=== PATIENT | female | born 1995 | race American Indian/Alaskan Native ===

== ENCOUNTER 2017-11-30 01:24 | Emergency (ER) | payer OTHER ==
[~2017-11-30] VITALS: Ht 165.1 cm; Wt 73.9 kg
[~2017-11-30 01:24] MED LIST: AMOX-362 PO; IBUP200C71 PO; LOR5/325 PO; MINO100C27 PO; NITR-105 PO; OMEP-125 PO; ONDA4TAB9 PO; OXYC-865 PO; PROM-110 PO; RANI-324 PO; SULF-198 PO; [UNRECOGNIZED DRUG - CODE] PO
[2017-11-30 01:28] VITALS: BP 113/62
--- NOTE | 2017-11-30 01:28 | ER Report ---
History and Physical Time Seen By MD: 01:27 HPI/ROS CHIEF COMPLAINT: Eyelid swelling and redness HISTORY OF PRESENT ILLNESS: 22-year-old female presents ambulatory to the ER concerned about her eyelids. She states she tried a new facial cleansing product. In her lower eyelids are no red and swollen. She also notes that she has a spot on her left lower eyelid at the margin. She notes a red lump. It's been irritating her eye. She notes no mattering or discharge. She's had no recent URI or fever. REVIEW OF SYSTEMS: Respiratory: No cough, no dyspnea. Cardiovascular: No chest pain, no palpitations. Gastrointestinal: No vomiting, no abdominal pain. Musculoskeletal: No back pain. Allergies: Coded Allergies: No Known Drug Allergies (Unverified , 11/30/17) Home Meds Discontinued Reported Medications Ibuprofen (IBUPROFEN) 200 Mg Capsule, 1 CAP PO PRN, CAPSULE 08/31/17 Reviewed Nurses Notes: Yes Old Medical Records Reviewed: Yes Hx Smoking: No Smoking Status: Never Smoker Hx Substance Use Disorder: No Hx Alcohol Use: Yes (FEW TIMES) Constitutional Vital Sign - Last 24 Hours 11/30/17 01:28 Temp 98.2 Pulse 78 Resp 18 B/P (MAP) 113/62 Pulse Ox 96 O2 Delivery Room Air Physical Exam General Appearance: The patient is alert, has no immediate need for airway protection and no current signs of toxicity. Vital signs stable, afebrile Eyes: Pupils equal and round no injection. No injection noted. The bilateral lower lid show mild erythema with edema. In the midportion of the left lower lid. There is apparent stye. Respiratory: Chest is non tender, lungs are clear to auscultation. Cardiac: regular rate and rhythm Gastrointestinal: Abdomen is soft and non tender, no masses, bowel sounds normal. Musculoskeletal: Neck: Neck is supple and non tender. No lymphadenopathy Extremities have full range of motion and are non tender. Skin: No rashes or lesions. DIFFERENTIAL DIAGNOSIS: After history and physical exam differential diagnosis was considered for allergic reaction, cellulitis, hordeolum, contact dermatitis , viral syndrome Medical Decision Making ED Course/Re-evaluation ED Course Patient was admitted to an examination room. H&P was done. The differential diagnoses was considered. On clinical examination, patient appears to have a allergic reaction/contact dermatitis to her facial wash material. She also has a stye in her left eye. Patient was advised to conservative treatment plan with hydrocortisone 1% cream. Patient was advised Benadryl for itching and ibuprofen for pain. She was advised to apply warm compresses to her left eyelid. Decision to Disposition Date: Nov 30, 2017 Decision to Disposition Time: 01:43 Depart Departure Latest Vital Signs Vital Signs Date Time Temp Pulse Resp B/P (MAP) Pulse Ox O2 Delivery O2 Flow Rate FiO2 11/30/17 01:28 98.2 78 18 113/62 96 Room Air Impression: Primary Impression: Blepharitis Additional Impression: Hordeolum Condition: Improved Disposition: HOME OR SELF-CARE Referrals: MANOJ SANCHEZ MD New Scripts No Active Prescriptions or Reported Meds Patient Instructions: Blepharitis (ED), Stye (ED) Additional Instructions: Use hydrocortisone 1% cream on her eyelids 2-3 times per day for the next 3-5 days Use Benadryl for any itching or burning Take ibuprofen for pain relief as needed Apply warm compresses to your left lower eyelid to heal the blocked oil gland Follow-up with primary care if unimproved in 3-5 days Problem Qualifiers Primary Impression: Blepharitis Blepharitis type: unspecified type Laterality: bilateral Eyelid: lower Qualified Codes: H01.002 - Unspecified blepharitis right lower eyelid; H01.005 - Unspecified blepharitis left lower eyelid Additional Impression: Hordeolum Hordeolum type: unspecified type Laterality: left Eyelid: lower Qualified Codes: H00.015 - Hordeolum externum left lower eyelid MEGHAN HENDRICKS DO Nov 30, 2017 01:28
== END 2017-11-30 01:55 | disposition home or self-care (01) ==
LOC: ER 01:46
DX: H01.002 Unspecified blepharitis right lower eyelid (principal); H00.015 Hordeolum externum left lower eyelid
CPT/HCPCS: 99281

== ENCOUNTER 2017-12-10 19:16 | Emergency (ER) | payer OTHER ==
[~2017-12-10] VITALS: Ht 165.1 cm; Wt 73.9 kg
[2017-12-10] MEDS ORDERED: NS(*) 0.9% 1000 ML BAG 1,000 ML IV ONE (19:42)
--- NOTE | 2017-12-10 19:50 | ER Report ---
History and Physical Time Seen By MD: 19:27 Hx. of Stated Complaint: patient states she is dehydrated; having bad menstrual cramps and has a head ache. pt also states that she can not sleep. HPI/ROS CHIEF COMPLAINT: Headache, abdominal pain, vomiting. HISTORY OF PRESENT ILLNESS: 22-year-old female patient presents to emergency room with complaint of headache, abdominal pain and vomiting. Patient states that she has had a headache, abdominal pain and vomiting for the last 2 days. She states that today she vomited 5 times, she states that she vomited more yesterday. She states she is currently on her menses and that that started yesterday as well. She states the headache is on the left side of the head, she states that this is a worsening headache she's ever had. She states she's had headaches in the past but nothing like this. She denies having any fevers, chills, diarrhea. She states she's not been able to eat. She states she's not been able to sleep she is extremely stressed about school. She states she is very tired and just not feeling well. REVIEW OF SYSTEMS: Respiratory: No cough, no dyspnea. Cardiovascular: No chest pain, no palpitations. Gastrointestinal: As noted above Musculoskeletal: No back pain. Allergies: Coded Allergies: No Known Drug Allergies (Unverified , 12/10/17) Home Meds Active Scripts Ondansetron (ZOFRAN ODT) 4 Mg Tab.rapdis, 4 MG PO Q6H Y for NAUSEA/VOMITING, # 20 TAB.ANGEL Prov:FEMI BUTCHER PIN [employer]KER 12/10/17 Past Medical/Surgical History Patient has a past medical history of asthma, tuberculosis, reflux, alcohol use , depression. Patient has a surgical history of tonsillectomy. Reviewed Nurses Notes: Yes Hx Smoking: No Smoking Status: Never Smoker Hx Substance Use Disorder: No Hx Alcohol Use: Yes (FEW TIMES) Constitutional Vital Sign - Last 24 Hours 12/10/17 19:23 Temp 98.9 Pulse 70 Resp 19 B/P (MAP) 121/55 Pulse Ox 98 O2 Delivery Room Air Physical Exam General Appearance: The patient is alert, has no immediate need for airway protection and no current signs of toxicity. Eyes: Pupils equal and round no injection. Extraocular movements intact. Respiratory: Chest is non tender, lungs are clear to auscultation. Cardiac: regular rate and rhythm Gastrointestinal: Abdomen is soft and tender in the left lower quadrant, no masses, bowel sounds normal. Musculoskeletal: Neck: Neck is supple and non tender. Extremities have full range of motion and are non tender. Skin: No rashes or lesions. Neuro: Patient is alert and oriented 4, cranial nerves II through XII grossly intact. DIFFERENTIAL DIAGNOSIS: After history and physical exam differential diagnosis was considered for viral syndrome, migraine, tension type headache, anxiety, depression, menstrual cramping. Medical Decision Making Data Points Result Diagram: 12/10/17195112/10/171951 Laboratory Hematology Test 12/10/17 19:52 Red Blood Count 5.45 M/uL (4.17-5.56) Mean Corpuscular Volume 85.0 fL (80.0-96.0) Mean Corpuscular Hemoglobin 28.5 pg (26.0-33.0) Mean Corpuscular Hemoglobin Concent 33.5 g/dL (32.0-36.0) Red Cell Distribution Width 14.0 % (11.5-14.5) Mean Platelet Volume 7.6 fL (7.2-11.1) Neutrophils (%) (Auto) 58.5 % (39.4-72.5) Lymphocytes (%) (Auto) 33.1 % (17.6-49.6) Monocytes (%) (Auto) 6.6 % (4.1-12.4) Eosinophils (%) (Auto) 1.0 % (0.4-6.7) Basophils (%) (Auto) 0.8 % (0.3-1.4) Nucleated RBC Relative Count (auto) 0.1 /100WBC Neutrophils # (Auto) 4.5 K/uL (2.0-7.4) Lymphocytes # (Auto) 2.6 K/uL (1.3-3.6) Monocytes # (Auto) 0.5 K/uL (0.3-1.0) Eosinophils # (Auto) 0.1 K/uL (0.0-0.5) Basophils # (Auto) 0.1 K/uL (0.0-0.1) Nucleated RBC Absolute Count (auto) 0.00 K/uL Sodium Level 140 mmol/L (137-145) Potassium Level 4.0 mmol/L (3.5-5.0) Chloride Level 104 mmol/L (98-107) Carbon Dioxide Level 23 mmol/L (22-31) Blood Urea Nitrogen 10 mg/dl (7-18) Creatinine 0.70 mg/dl (0.52-1.04) Glomerular Filtration Rate Calc > 60.0 Random Glucose 82 mg/dl (75-110) Calcium Level 9.4 mg/dl (8.4-10.2) Total Bilirubin 0.6 mg/dl (0.2-1.3) Aspartate Amino Transf (AST/SGOT) 22 U/L (0-35) Alanine Aminotransferase (ALT/SGPT) 23 U/L (0-56) Alkaline Phosphatase 51 U/L (0-126) C-Reactive Protein < 0.5 mg/dl (<1.0) Total Protein 7.9 gm/dl (6.3-8.2) Albumin 4.5 g/dl (3.5-5.0) Amylase Level 73 U/L (0-110) Lipase 34 U/L (23-300) Human Chorionic Gonadotropin, Qual Negative (NEGATIVE) Influenza Virus Type A (PCR) Negative (NEGATIVE) Influenza Virus Type B (PCR) Negative (NEGATIVE) Chemistry Test 12/10/17 19:52 White Blood Count 7.8 k/uL (4.5-11.0) Red Blood Count 5.45 M/uL (4.17-5.56) Hemoglobin 15.5 g/dL (12.0-16.0) Hematocrit 46.4 % (34.0-47.0) Mean Corpuscular Volume 85.0 fL (80.0-96.0) Mean Corpuscular Hemoglobin 28.5 pg (26.0-33.0) Mean Corpuscular Hemoglobin Concent 33.5 g/dL (32.0-36.0) Red Cell Distribution Width 14.0 % (11.5-14.5) Platelet Count 308 K/uL (150-450) Mean Platelet Volume 7.6 fL (7.2-11.1) Neutrophils (%) (Auto) 58.5 % (39.4-72.5) Lymphocytes (%) (Auto) 33.1 % (17.6-49.6) Monocytes (%) (Auto) 6.6 % (4.1-12.4) Eosinophils (%) (Auto) 1.0 % (0.4-6.7) Basophils (%) (Auto) 0.8 % (0.3-1.4) Nucleated RBC Relative Count (auto) 0.1 /100WBC Neutrophils # (Auto) 4.5 K/uL (2.0-7.4) Lymphocytes # (Auto) 2.6 K/uL (1.3-3.6) Monocytes # (Auto) 0.5 K/uL (0.3-1.0) Eosinophils # (Auto) 0.1 K/uL (0.0-0.5) Basophils # (Auto) 0.1 K/uL (0.0-0.1) Nucleated RBC Absolute Count (auto) 0.00 K/uL Glomerular Filtration Rate Calc > 60.0 Calcium Level 9.4 mg/dl (8.4-10.2) Total Bilirubin 0.6 mg/dl (0.2-1.3) Aspartate Amino Transf (AST/SGOT) 22 U/L (0-35) Alanine Aminotransferase (ALT/SGPT) 23 U/L (0-56) Alkaline Phosphatase 51 U/L (0-126) C-Reactive Protein < 0.5 mg/dl (<1.0) Total Protein 7.9 gm/dl (6.3-8.2) Albumin 4.5 g/dl (3.5-5.0) Amylase Level 73 U/L (0-110) Lipase 34 U/L (23-300) Human Chorionic Gonadotropin, Qual Negative (NEGATIVE) Influenza Virus Type A (PCR) Negative (NEGATIVE) Influenza Virus Type B (PCR) Negative (NEGATIVE) EKG/Imaging Imaging Abdomen: Indication: Abdominal pain. Technique: Supine and erect views of the abdomen were obtained. Comparison: None. Findings: The intestinal gas pattern is unremarkable. There is no evidence of obstruction, dilatation, or free air. No suspicious calcifications are identified. The skeletal and soft tissue structures appear unremarkable. IMPRESSION: No evidence of obstruction or other acute process. Report Dictated By: Jun Ferrera MD at 12/10/2017 9:00 PM Report E-Signed By: Jun Ferrera MD at 12/10/2017 9:02 PM CHEST: Indication: Cough. Technique: Frontal and lateral views were obtained. Comparison: 07/15/2015 Skeletal and soft tissue structures: Intact and unremarkable. Heart and mediastinum: Within normal limits. Lung martell: Well-expanded and clear. No focal or diffuse opacities. Pleural spaces: Unremarkable. Impression: No acute process or significant change. Report Dictated By: Jun Ferrera MD at 12/10/2017 8:58 PM Report E-Signed By: Jun Ferrera MD at 12/10/2017 9:[address]: Indication: Persistent headache. Technique: Contiguous axial sections were obtained from the base to the vertex without contrast enhancement. One of the following dose optimization techniques was utilized in the performance of this exam: Automated exposure control; adjustment of the mA and/ or kV according to the patient's size; or use of an iterative reconstruction technique. Specific details can be referenced in the facility's radiology CT exam operational policy. Comparison: None. Findings: There is no evidence of intra-axial or extra-axial hemorrhage. No focal areas of decreased or increased attenuation are identified. There is no evidence of mass, edema, or shift of the midline structures. The size, shape, and configuration of the ventricular system are normal. The skeletal structures are intact and unremarkable. The visualized paranasal sinuses and mastoid air cells are clear. Impression: Unremarkable unenhanced head CT. Report Dictated By: Jun Ferrera MD at 12/10/2017 9:02 PM Report E-Signed By: Jun Ferrera MD at 12/10/2017 9:05 PM ED Course/Re-evaluation ED Course Patient was admitted to an exam room, history and physical were obtained. Differential diagnoses were considered. On examination patient had mild tenderness in the left lower quadrant, remainder the exam is benign. A CBC, CMP were done. Patient received a liter of normal saline. The labs were unremarkable. A influenza screen was done which was also negative. CT scan of the head was done due to the headache, patient did state that it was a worse headache of her life, as well as a chest x-ray and abdominal x-ray. The results were unremarkable for all the imaging. I discussed findings with patient. We will go ahead and treat her headache with Toradol, Benadryl, Norflex, and Phenergan. On reevaluation patient states she had complete resolution of her headache. She also states that her abdomen is not hurting. We will go ahead and discharge her at this time. She is to follow-up with her primary care next week. Patient was talking about some anxiety problems she is having, not sleeping well at night. I will go ahead and refer her to her primary care provider to talk about antidepressants. Decision to Disposition Date: Dec 10, 2017 Decision to Disposition Time: 21:48 Depart Departure Latest Vital Signs Vital Signs Date Time Temp Pulse Resp B/P (MAP) Pulse Ox O2 Delivery O2 Flow Rate FiO2 12/10/17 19:23 98.9 70 19 121/55 98 Room Air Impression: Primary Impression: Headache Additional Impressions: Vomiting Gastroenteritis Condition: Improved Disposition: HOME OR SELF-CARE New Scripts Ondansetron (ZOFRAN ODT) 4 Mg Tab.rapdis 4 MG PO Q6H Y for NAUSEA/VOMITING, #20 TAB.ANGEL Prov: FEMI BUTCHER 12/10/17 Patient Instructions: Acute Headache (ED) Additional Instructions: Increase fluid intake. Clear liquid diet for the next 24-48 hours. After that you may advance diet as tolerated starting with complex carbohydrates ; rice, bread or pasta. Follow up with your primary care provider in the next week, talk about your anxiety and your insomnia. Return to the ER if condition worsens. Take Tylenol or Ibuprofen as needed for pain. Problem Qualifiers Primary Impression: Headache Headache type: tension-type Headache chronicity pattern: acute headache Intractability: not intractable Qualified Codes: G44.209 - Tension-type headache, unspecified, not intractable Additional Impressions: Vomiting Vomiting type: unspecified Vomiting Intractability: non-intractable Nausea presence: without nausea Qualified Codes: R11.11 - Vomiting without nausea FEMI BUTCHER Dec 10, 2017 19:50
[2017-12-10 20:04] LABS: PLATELET COUNT, AUTOMATED 308 K/uL (150-450)
--- NOTE | 2017-12-10 21:04 | RADIOLOGY IMAGING REPORT ---
FACILITY: [facility] PATIENT NAME: Genevieve Blanco : 1995 MR: [id number] V: [id number] EXAM DATE: ORDERING PHYSICIAN: FEMI BUTCHER TECHNOLOGIST: Location: [facility] - [place] Patient: Genevieve Blanco : 1995 Visit/Account:[id number] Date of Sevice: 12/10/2017 CHEST: Indication: Cough. Technique: Frontal and lateral views were obtained. Comparison: 07/15/2015 Skeletal and soft tissue structures: Intact and unremarkable. Heart and mediastinum: Within normal limits. Lung martell: Well-expanded and clear. No focal or diffuse opacities. Pleural spaces: Unremarkable. Impression: No acute process or significant change. Report Dictated By: Jun Ferrera MD at 12/10/2017 8:58 PM Report E-Signed By: Jun Ferrera MD at 12/10/2017 9:00 PM WSN:[id number]
--- NOTE | 2017-12-10 21:06 | RADIOLOGY IMAGING REPORT ---
FACILITY: [facility] - [place] PATIENT NAME: Genevieve Blanco : 1995 MR: [id number] V: [id number] EXAM DATE: ORDERING PHYSICIAN: FEMI BUTCHER TECHNOLOGIST: Location: [facility] Patient: Genevieve Blanco : 1995 Visit/Account:[id number] Date of Sevice: 12/10/2017 Abdomen: Indication: Abdominal pain. Technique: Supine and erect views of the abdomen were obtained. Comparison: None. Findings: The intestinal gas pattern is unremarkable. There is no evidence of obstruction, dilatation , or free air. No suspicious calcifications are identified. The skeletal and soft tissue structures a ppear unremarkable. IMPRESSION: No evidence of obstruction or other acute process. Report Dictated By: Jun Ferrera MD at 12/10/2017 9:00 PM Report E-Signed By: Jun Ferrera MD at 12/10/2017 9:02 PM WSN:[id number]
--- NOTE | 2017-12-10 21:09 | RADIOLOGY IMAGING REPORT ---
FACILITY: [facility] PATIENT NAME: Genevieve Blanco : 1995 MR: [id number] V: [id number] EXAM DATE: ORDERING PHYSICIAN: FEMI BUTCHER TECHNOLOGIST: Location: [facility] - [place] Patient: Genevieve Blanco : 1995 Visit/Account:[id number] Date of Sevice: 12/10/[address]: Indication: Persistent headache. Technique: Contiguous axial sections were obtained from the base to the vertex without contrast enhan cement. One of the following dose optimization techniques was utilized in the performance of this exam: Autom ated exposure control; adjustment of the mA and/or kV according to the patient's size; or use of an i terative reconstruction technique. Specific details can be referenced in the facility's radiology CT exam operational policy. Comparison: None. Findings: There is no evidence of intra-axial or extra-axial hemorrhage. No focal areas of decreased or increased attenuation are identified. There is no evidence of mass, edema, or shift of the midline structures. The size, shape, and configuration of the ventricular system are normal. The skeletal st ructures are intact and unremarkable. The visualized paranasal sinuses and mastoid air cells are huy r. Impression: Unremarkable unenhanced head CT. Report Dictated By: Jun Ferrera MD at 12/10/2017 9:02 PM Report E-Signed By: Jun Ferrera MD at 12/10/2017 9:05 PM WSN:[id number]
[2017-12-10] MEDS ORDERED: ORPHENADRINE 60MG/2ML INJ IVP ONE (21:10)
[2017-12-10] MEDS ORDERED: PROMETHAZINE 25 MG/ML 1 ML AMP IVP ONE (21:10)
[2017-12-10] MEDS ORDERED: diphenhydrAMINE 50 MG/ML VIAL IVP ONE (21:10)
[2017-12-10] MEDS ORDERED: KETOROLAC 30 MG/ML VIAL IVP ONE (21:10)
[2017-12-10] MEDS ORDERED: ONDA4TAB PO (21:48)
[2017-12-10 22:00] VITALS: BP 114/73
== END 2017-12-10 22:04 | disposition home or self-care (01) ==
LOC: ER 19:19
DX: K52.9 Noninfective gastroenteritis and colitis, unspecified (principal); G44.209 Tension-type headache, unspecified, not intractable; R11.11 Vomiting without nausea
CPT/HCPCS: 70450; 71046; 74019; 82150; 83690; 84703; 85025; 86140; 87502; 96361; 96374; 96375; 99284; J1200; J1885; J2360; J2550; J7030; 82040; 82247; 82310; 82374; 82435; 82565; 82947; 84075; 84132; 84155; 84295; 84450; 84460; 84520

== ENCOUNTER 2018-03-02 09:42 | Emergency (ER) | payer OTHER ==
[~2018-03-02 09:42] MED LIST changes: +ONDA4TAB PO; -RANI-324 PO; +RANI-366 PO
--- NOTE | 2018-03-02 09:50 | ER Report ---
History and Physical Time Seen By MD: 09:49 HPI/ROS CHIEF COMPLAINT: Headache, nausea and vomiting HISTORY OF PRESENT ILLNESS: Patient is a 22-year-old female who presents to the emergency department with multiple complaints. She states that she is having headache with associated nausea and vomiting similar to her prior headaches she was seen on 12/10/2017. Patient denies any fevers or chills. She denies any neck stiffness. She states that she is also having some abnormal vaginal discharge. And is unsure of her last menstrual period and could possibly be . Patient states she is sexually active. She also admits to having stress with regard to school. REVIEW OF SYSTEMS: Respiratory: No cough, no dyspnea. Cardiovascular: No chest pain, no palpitations. Gastrointestinal: Nausea, vomiting no abdominal pain no diarrhea Musculoskeletal: No back pain. Neuro: Headache ON AIR PERSONALITY: Vaginal discharge Allergies: Coded Allergies: No Known Drug Allergies (Unverified , 03/02/18) Home Meds Active Scripts Naproxen (NAPROXEN) 250 Mg Tablet, 500 MG PO TID for headache, #15 TAB 0 Refills Prov:ROCKY ELLIOTT MD 03/02/18 Doxycycline Hyclate (DOXYCYCLINE HYCLATE) 100 Mg Tablet, 100 MG PO BID for 7 Days, #14 TAB 0 Refills Prov:ROCKY ELLIOTT MD 03/02/18 Discontinued Scripts Ondansetron (ZOFRAN ODT) 4 Mg Tab.rapdis, 4 MG PO Q6H Y for NAUSEA/VOMITING, # 20 TAB.ANGEL Prov:FEMI BUTCHER [employer] 12/10/17 Past Medical/Surgical History Noncontributory Hx Smoking: No Smoking Status: Never Smoker Hx Substance Use Disorder: No Hx Alcohol Use: Yes (FEW TIMES) Constitutional Vital Sign - Last 24 Hours 03/02/18 09:52 Temp 98.2 Pulse 76 Resp 18 B/P (MAP) 108/56 Pulse Ox 97 O2 Delivery Room Air Physical Exam General/Constitutional: Patient is awake, alert, nontoxic and in no acute respiratory distress. Head: Normocephalic and atraumatic. Eyes: Conjunctival clear, Pupils are equal and reactive to light. Extraocular muscles are intact and symmetrical. Sclera are clear and anicteric. Ears:External canals are clear. Tympanic membranes are clear with normal landmarks and light reflex. Oropharyngeal: Mucous membranes are moist. There is no pharyngeal erythema or exudate. There are no palatal petechiae. Uvula is midline and symmetrical. Neck: Supple, no adenopathy. Cardiovascular: Heart is regular rate and rhythm without audible murmurs, rubs or gallops. Pulmonary: Lungs are clear to auscultation bilaterally. There are no wheezes, rales, or rhonchi. Chest rise is symmetrical Abdomen: Soft, nontender, no guarding or peritoneal signs. : Patient refused vaginal and speculum exam at this time. She states she does not feel comfortable with the male performing the exam and she has never had a pelvic exam performed prior. Extremities: No gross deformities, No peripheral cyanosis. Able to move all 4 extremities. Neuro: Alert and oriented X3, Skin: No rashes, skin is warm dry and well perfused. Medical Decision Making Data Points Result Diagram: 03/02/18 1015 03/02/18 1015 Laboratory Hematology Test 03/02/18 10:15 03/02/18 11:41 Red Blood Count 5.30 M/uL (4.17-5.56) Mean Corpuscular Volume 84.2 fL (80.0-96.0) Mean Corpuscular Hemoglobin 29.1 pg (26.0-33.0) Mean Corpuscular Hemoglobin Concent 34.5 g/dL (32.0-36.0) Red Cell Distribution Width 13.7 % (11.5-14.5) Mean Platelet Volume 7.6 fL (7.2-11.1) Neutrophils (%) (Auto) 54.4 % (39.4-72.5) Lymphocytes (%) (Auto) 35.9 % (17.6-49.6) Monocytes (%) (Auto) 6.8 % (4.1-12.4) Eosinophils (%) (Auto) 2.3 % (0.4-6.7) Basophils (%) (Auto) 0.6 % (0.3-1.4) Nucleated RBC Relative Count (auto) 0.1 /100WBC Neutrophils # (Auto) 4.2 K/uL (2.0-7.4) Lymphocytes # (Auto) 2.8 K/uL (1.3-3.6) Monocytes # (Auto) 0.5 K/uL (0.3-1.0) Eosinophils # (Auto) 0.2 K/uL (0.0-0.5) Basophils # (Auto) 0.0 K/uL (0.0-0.1) Nucleated RBC Absolute Count (auto) 0.01 K/uL Sodium Level 140 mmol/L (137-145) Potassium Level 3.8 mmol/L (3.5-5.0) Chloride Level 104 mmol/L (98-107) Carbon Dioxide Level 23 mmol/L (22-31) Blood Urea Nitrogen 14 mg/dl (7-18) Creatinine 0.70 mg/dl (0.52-1.04) Glomerular Filtration Rate Calc > 60.0 Random Glucose 87 mg/dl (75-110) Calcium Level 9.5 mg/dl (8.4-10.2) Urine Color Yellow Urine Clarity Slightly-cloudy Urine pH 7.0 pH (4.8-9.5) Urine Specific [place] 1.010 Urine Protein Negative mg/dL (NEGATIVE) Urine Glucose (UA) Negative mg/dL (NEGATIVE) Urine Ketones Negative mg/dL (NEGATIVE) Urine Blood Large (NEGATIVE) Urine Nitrite Positive (NEGATIVE) Urine Bilirubin Negative (NEGATIVE) Urine Urobilinogen Negative mg/dL (0.2-1.9) Urine Leukocyte Esterase Small (NEGATIVE) Urine RBC 4 /HPF (0-2/HPF) Urine WBC 15 /HPF (0-5/HPF) Urine Squamous Epithelial Cells Many /LPF (</=FEW) Urine Bacteria Few /HPF (NONE-FEW) Urine Mucus Few /HPF (NONE-FEW) Urine HCG, Qualitative Negative (NEGATIVE) Chemistry Test 03/02/18 10:15 03/02/18 11:41 White Blood Count 7.8 k/uL (4.5-11.0) Red Blood Count 5.30 M/uL (4.17-5.56) Hemoglobin 15.4 g/dL (12.0-16.0) Hematocrit 44.6 % (34.0-47.0) Mean Corpuscular Volume 84.2 fL (80.0-96.0) Mean Corpuscular Hemoglobin 29.1 pg (26.0-33.0) Mean Corpuscular Hemoglobin Concent 34.5 g/dL (32.0-36.0) Red Cell Distribution Width 13.7 % (11.5-14.5) Platelet Count 308 K/uL (150-450) Mean Platelet Volume 7.6 fL (7.2-11.1) Neutrophils (%) (Auto) 54.4 % (39.4-72.5) Lymphocytes (%) (Auto) 35.9 % (17.6-49.6) Monocytes (%) (Auto) 6.8 % (4.1-12.4) Eosinophils (%) (Auto) 2.3 % (0.4-6.7) Basophils (%) (Auto) 0.6 % (0.3-1.4) Nucleated RBC Relative Count (auto) 0.1 /100WBC Neutrophils # (Auto) 4.2 K/uL (2.0-7.4) Lymphocytes # (Auto) 2.8 K/uL (1.3-3.6) Monocytes # (Auto) 0.5 K/uL (0.3-1.0) Eosinophils # (Auto) 0.2 K/uL (0.0-0.5) Basophils # (Auto) 0.0 K/uL (0.0-0.1) Nucleated RBC Absolute Count (auto) 0.01 K/uL Glomerular Filtration Rate Calc > 60.0 Calcium Level 9.5 mg/dl (8.4-10.2) Urine Color Yellow Urine Clarity Slightly-cloudy Urine pH 7.0 pH (4.8-9.5) Urine Specific [place] 1.010 Urine Protein Negative mg/dL (NEGATIVE) Urine Glucose (UA) Negative mg/dL (NEGATIVE) Urine Ketones Negative mg/dL (NEGATIVE) Urine Blood Large (NEGATIVE) Urine Nitrite Positive (NEGATIVE) Urine Bilirubin Negative (NEGATIVE) Urine Urobilinogen Negative mg/dL (0.2-1.9) Urine Leukocyte Esterase Small (NEGATIVE) Urine RBC 4 /HPF (0-2/HPF) Urine WBC 15 /HPF (0-5/HPF) Urine Squamous Epithelial Cells Many /LPF (</=FEW) Urine Bacteria Few /HPF (NONE-FEW) Urine Mucus Few /HPF (NONE-FEW) Urine HCG, Qualitative Negative (NEGATIVE) Urinalysis Test 03/02/18 11:41 Urine Color Yellow Urine Clarity Slightly-cloudy Urine pH 7.0 pH (4.8-9.5) Urine Specific [place] 1.010 Urine Protein Negative mg/dL (NEGATIVE) Urine Glucose (UA) Negative mg/dL (NEGATIVE) Urine Ketones Negative mg/dL (NEGATIVE) Urine Blood Large (NEGATIVE) Urine Nitrite Positive (NEGATIVE) Urine Bilirubin Negative (NEGATIVE) Urine Urobilinogen Negative mg/dL (0.2-1.9) Urine Leukocyte Esterase Small (NEGATIVE) Urine RBC 4 /HPF (0-2/HPF) Urine WBC 15 /HPF (0-5/HPF) Urine Squamous Epithelial Cells Many /LPF (</=FEW) Urine Bacteria Few /HPF (NONE-FEW) Urine Mucus Few /HPF (NONE-FEW) Urine HCG, Qualitative Negative (NEGATIVE) ED Course/Re-evaluation Clinical Indication for ER IV: Hydration, IV Access ED Course 03/02/2018 10:28:06 am had discussion with the patient that with regard to her vaginal discharge or pelvic exam would be indicated. Patient states that she has never had a pelvic exam performed and does not wish to have one performed at this time. I stated that we would be able to send off urine for some STD testing but she really should have a formal pelvic exam if she is sexually active. I discussed that I will provide her with Dr. Candy Fischer's contact information so that she can set up a formal ON AIR PERSONALITY exam Re-evaluation 03/02/2018 12:01:08 pm headache has resolved patient is feeling improved. Urinalysis positive for nitrates. We'll give IM Rocephin followed by 70 course of doxycycline. This is a presumptive diagnosis for STD based on the patient's symptoms. ON AIR PERSONALITY exam deferred by the patient. She will schedule a follow-up appointment with Dr. Candy Fischer. STD results are pending. Treatment for STD was on presumptive and clinical diagnosis Decision to Disposition Date: Mar 02, 2018 Decision to Disposition Time: 12:01 Depart Departure Latest Vital Signs Vital Signs Date Time Temp Pulse Resp B/P (MAP) Pulse Ox O2 Delivery O2 Flow Rate FiO2 03/02/18 09:52 98.2 76 18 108/56 97 Room Air Impression: Primary Impression: Headache Additional Impression: Urinary tract infection Condition: Improved Disposition: HOME OR SELF-CARE Referrals: CANDY FISCHER MD schedule an appointment for ON AIR PERSONALITY exam New Scripts Naproxen (NAPROXEN) 250 Mg Tablet 500 MG PO TID for headache, #15 TAB 0 Refills Prov: ROCKY ELLIOTT MD 03/02/18 Doxycycline Hyclate (DOXYCYCLINE HYCLATE) 100 Mg Tablet 100 MG PO BID for 7 Days, #14 TAB 0 Refills Prov: ROCKY ELLIOTT MD 03/02/18 Patient Instructions: Acute Headache (ED), Urinary Tract Infection in Women (ED ) Problem Qualifiers Primary Impression: Headache Headache type: tension-type Headache chronicity pattern: unspecified pattern Intractability: not intractable Qualified Codes: G44.209 - Tension- type headache, unspecified, not intractable Additional Impression: Urinary tract infection Urinary tract infection type: site unspecified Hematuria presence: without hematuria Qualified Codes: N39.0 - Urinary tract infection, site not specified ROCKY ELLIOTT MD Mar 02, 2018 09:50
[2018-03-02] MEDS ORDERED: NS(*) 0.9% 1000 ML BAG 1,000 ML IV ONE (10:10)
[2018-03-02] MEDS ORDERED: KETOROLAC 30 MG/ML VIAL IVP ONE (10:10)
[2018-03-02] MEDS ORDERED: METOCLOPRAMIDE 10 MG/2 ML SDV IVP ONE (10:10)
[2018-03-02] MEDS ORDERED: diphenhydrAMINE 50 MG/ML VIAL IVP ONE (10:10)
[2018-03-02 10:23] LABS: PLATELET COUNT, AUTOMATED 308 K/uL (150-450)
[2018-03-02 11:30] VITALS: BP 100/53
[2018-03-02] MEDS ORDERED: DOXYCYCLINE HYCL 100 MG TAB PO ONE (11:55)
[2018-03-02] MEDS ORDERED: cefTRIAXone 250 MG VIAL IM ONE (11:55)
[2018-03-02] MEDS ORDERED: NAPR-744 PO (11:57)
[2018-03-02] MEDS ORDERED: DOXY-179 PO (11:57)
== END 2018-03-02 12:10 | disposition home or self-care (01) ==
LOC: ER 09:56
DX: G44.209 Tension-type headache, unspecified, not intractable (principal); N39.0 Urinary tract infection, site not specified
CPT/HCPCS: 81001; 81025; 85025; 87077; 87088; 87186; 96361; 96372; 96374; 96375; 99284; J0696; J1200; J1885; J2765; J7030; 82310; 82374; 82435; 82565; 82947; 84132; 84295; 84520

== ENCOUNTER 2018-03-19 08:33 | Emergency (ER) | payer OTHER ==
[~2018-03-19 08:33] MED LIST changes: +DOXY-179 PO; +NAPR-744 PO
--- NOTE | 2018-03-19 08:37 | ER Report ---
History and Physical Time Seen By MD: 08:36 HPI/ROS CHIEF COMPLAINT: Sore throat, nonproductive cough, rhinorrhea. HISTORY OF PRESENT ILLNESS: Patient is a 22-year-old female here with several day history of sore throat now with nonproductive cough, rhinorrhea and tender cervical lymphadenopathy. Patient is well-appearing on exam, afebrile and hemodynamically stable, in no acute distress. Denies fevers, chills, chest pain , shortness breath, nausea, vomiting. Allergies: Coded Allergies: No Known Drug Allergies (Unverified , 03/19/18) Home Meds Discontinued Scripts Naproxen (NAPROXEN) 250 Mg Tablet, 500 MG PO TID for headache, #15 TAB 0 Refills Prov:ROCKY ELLIOTT MD 03/02/18 Doxycycline Hyclate (DOXYCYCLINE HYCLATE) 100 Mg Tablet, 100 MG PO BID for 7 Days, #14 TAB 0 Refills Prov:ROCKY ELLIOTT MD 03/02/18 Hx Smoking: No Smoking Status: Never Smoker Hx Substance Use Disorder: No Hx Alcohol Use: Yes (FEW TIMES) Constitutional Vital Sign - Last 24 Hours 03/19/18 03/19/18 08:37 09:22 Temp 98.1 Pulse 86 Resp 20 B/P (MAP) 101/48 93/54 (67) Pulse Ox 98 O2 Delivery Room Air Physical Exam General Appearance: No acute distress, well-appearing Eyes: Pupils equal and round no injection. Respiratory: Chest is non tender, lungs are clear to auscultation. Cardiac: regular rate and rhythm Throat: + exudates with erythema of the posterior oropharynx Skin: No rashes or lesions. DIFFERENTIAL DIAGNOSIS: After history and physical exam differential diagnosis was considered for strep throat, mononucleosis, sinusitis, viral syndrome Medical Decision Making Data Points Laboratory Hematology Test 03/19/18 08:54 03/19/18 08:57 Group A Streptococcus Screen Negative (NEGATIVE) Monoscreen Negative (NEGATIVE) Chemistry Test 03/19/18 08:54 03/19/18 08:57 Group A Streptococcus Screen Negative (NEGATIVE) Monoscreen Negative (NEGATIVE) ED Course/Re-evaluation ED Course Patient is a 22-year-old female here with complaints of sore throat for several days, rhinorrhea, dry cough. Patient is well-appearing, hemodynamically stable, afebrile. Rapid strep and mono tests were ordered and collected. Rapid strep and mono test were negative for infection. Patient was advised to take numbing cough drops/spray, salt water rinses, etc. Patient was stable at time of discharge.. Decision to Disposition Date: March 19, 2018 Decision to Disposition Time: 09:20 Depart Departure Latest Vital Signs Vital Signs Date Time Temp Pulse Resp B/P (MAP) Pulse Ox O2 Delivery O2 Flow Rate FiO2 03/19/18 09:22 93/54 (67) 03/19/18 08:37 98.1 86 20 98 Room Air Impression: Primary Impression: Sore throat Additional Impressions: Rhinorrhea Cough Condition: Condition Unchanged New Scripts No Active Prescriptions or Reported Meds Patient Instructions: Sore Throat in Children (ED) Additional Instructions: You may use salt water "swish and spit" rinses. Please use numbing drops or spray for pain control Problem Qualifiers VERNA LIU DO March 19, 2018 08:37
[2018-03-19 09:22] VITALS: BP 93/54
== END 2018-03-19 09:26 | disposition home or self-care (01) ==
LOC: ER 08:55
DX: J02.9 Acute pharyngitis, unspecified (principal); J34.89 Other specified disorders of nose and nasal sinuses; R05 Cough
CPT/HCPCS: 36415; 86308; 87081; 87880; 99282

== ENCOUNTER 2018-03-23 03:18 | Emergency (ER) | payer OTHER ==
--- NOTE | 2018-03-23 03:27 | ER Report ---
History and Physical Time Seen By MD: 03:26 Hx. of Stated Complaint: Bad cough for 2 days HPI/ROS CHIEF COMPLAINT: cough HISTORY OF PRESENT ILLNESS: This is a 22 year old female. She has been sick for about 5 days. She says that she is coughing so much it is hard for her to breath and she is not able to sleep. Having fevers and chills and using Ibuprofen. No other over the counter medications. She has a runny nose as well and sore throat. No nausea or vomiting. No chest pain. No abdominal pain. Normal bowels and bladder function. Cough is productive. Having some aches and pains as well. Allergies: Coded Allergies: No Known Drug Allergies (Unverified , 03/23/18) Home Meds Active Scripts Guaifenesin/Codeine (GUAIFENESIN-CODEINE SYRUP) 5 Ml Syrp, 5 ML PO Q6H Y for COUGH, #60 ML 0 Refills Prov:ERIK TONG MD 03/23/18 Discontinued Scripts Naproxen (NAPROXEN) 250 Mg Tablet, 500 MG PO TID for headache, #15 TAB 0 Refills Prov:ROCKY ELLIOTT MD 03/02/18 Doxycycline Hyclate (DOXYCYCLINE HYCLATE) 100 Mg Tablet, 100 MG PO BID for 7 Days, #14 TAB 0 Refills Prov:ROCKY ELLIOTT MD 03/02/18 Reviewed Nurses Notes: Yes Hx Smoking: No Smoking Status: Never Smoker Hx Substance Use Disorder: No Hx Alcohol Use: Yes (FEW TIMES) Constitutional Vital Sign - Last 24 Hours 03/23/18 03/23/18 03/23/18 03/23/18 03:21 03:30 03:30 03:30 Temp 98.3 Pulse 118 104 109 Resp 20 16 B/P (MAP) 122/75 108/90 (96) Pulse Ox 97 98 99 O2 Delivery Room Air Room Air 03/23/18 03/23/18 03:38 04:00 Pulse 105 116 Resp 16 B/P (MAP) 111/72 (85) Pulse Ox 98 Physical Exam General Appearance: The patient is alert. No acute distress. Eyes: Pupils are equal, round. No pallor, injection or icterus. ENT: Mucous membranes are moist. Normal oral mucosa. Posterior oropharynx is normal. Normal tympanic membranes and canals. Neck: Supple and non tender. Having anterior cervical lymphadenopathy. Respiratory: Lungs with rhonchi. No wheezing or rales. Cardiovascular: Regular rate and rhythm. No murmurs, gallops or rubs. Normal capillary refill. Gastrointestinal: Abdomen is soft and non tender. Nondistended. Normal active bowel sounds. Neurological: Alert and oriented x3. Skin: Warm and dry. DIFFERENTIAL DIAGNOSIS: After history and physical exam, differential diagnosis was considered for cough and runny nose, appears likely viral infection, will try a nebulizer and get a chest x-ray. Medical Decision Making EKG/Imaging Imaging CHEST PA AND LAT HISTORY: Cough and sore throat for 5 days. COMPARISON: 12/10/2017 and 07/15/2015. TECHNIQUE: PA and lateral views of the chest. FINDINGS: Pulmonary: Lungs are clear. There is no pneumothorax or pleural effusion. Cardiomediastinal: Cardiac and mediastinal silhouettes are within normal limits. Bones/soft tissues: No acute osseous abnormality. The visible abdomen is normal. IMPRESSION: 1. No acute cardiopulmonary process. Report Dictated By: Luiza Gordon at 03/23/2018 4:00 AM ED Course/Re-evaluation ED Course No improvement with Albuterol nebulizer. Chest x-ray was negative. Gave the patient Guaifenesin with Codeine for cough. Decision to Disposition Date: March 23, 2018 Decision to Disposition Time: 04:09 Depart Departure Latest Vital Signs Vital Signs Date Time Temp Pulse Resp B/P (MAP) Pulse Ox O2 Delivery O2 Flow Rate FiO2 03/23/18 04:00 116 111/72 (85) 98 03/23/18 03:38 16 03/23/18 03:30 Room Air 03/23/18 03:21 98.3 Impression: Primary Impression: Cough Additional Impression: Upper respiratory infection Condition: Improved Disposition: HOME OR SELF-CARE New Scripts Guaifenesin/Codeine (GUAIFENESIN-CODEINE SYRUP) 5 Ml Syrp 5 ML PO Q6H Y for COUGH, #60 ML 0 Refills Prov: ERIK TONG MD 03/23/18 Patient Instructions: Upper Respiratory Infection (ED) Additional Instructions: You have an upper respiratory infection caused by a virus. No medicine will get rid of this faster; your body's immune system will need to fight this off on it's own. We can provide medicines to help with symptoms. Take Guaifenesin with Codeine to help with cough and to help you rest. Take 1 teaspoon every 6 hours as needed for cough. Keep taking over the counter Ibuprofen to help with pain. Consider using some nasal saline or a saline rinse kit such as a Carissa Pot to help with sinus drainage. You can also try some over the counter cold medications that can help. Talk to you pharmacist to help with selection. Problem Qualifiers Additional Impression: Upper respiratory infection URI type: unspecified viral URI Qualified Codes: J06.9 - Acute upper respiratory infection, unspecified ERIK TONG MD March 23, 2018 03:27
[2018-03-23] MEDS ORDERED: ALBUTEROL 2.5 MG/3 ML NEB NEB ONE (03:35)
[2018-03-23 04:00] VITALS: BP 111/72
--- NOTE | 2018-03-23 04:06 | RADIOLOGY IMAGING REPORT ---
FACILITY: [facility] [place] PATIENT NAME: Genevieve Blanco : 1995 MR: [id number] V: [id number] EXAM DATE: ORDERING PHYSICIAN: ERIK TONG TECHNOLOGIST: Location: [facility] Patient: Genevieve Blanco : 1995 Visit/Account:[id number] Date of Sevice: 03/23/2018 CHEST PA AND LAT HISTORY: Cough and sore throat for 5 days. COMPARISON: 12/10/2017 and 07/15/2015. TECHNIQUE: PA and lateral views of the chest. FINDINGS: Pulmonary: Lungs are clear. There is no pneumothorax or pleural effusion. Cardiomediastinal: Cardiac and mediastinal silhouettes are within normal limits. Bones/soft tissues: No acute osseous abnormality. The visible abdomen is normal. IMPRESSION: 1. No acute cardiopulmonary process. Report Dictated By: Luiza Gordon at 03/23/2018 4:00 AM Report E-Signed By: Luiza Gordon at 03/23/2018 4:01 AM WSN:[id number]
[2018-03-23] MEDS ORDERED: ROBC PO (04:13)
[2018-03-23] MEDS ORDERED: guaiFENesin/CODEINE 5 ML UDBTL PO ONE (04:15)
== END 2018-03-23 04:21 | disposition home or self-care (01) ==
LOC: ER 03:38
DX: J06.9 Acute upper respiratory infection, unspecified (principal)
CPT/HCPCS: 71046; 94640; 99283; J7613

== ENCOUNTER 2019-03-20 20:42 | Emergency (ER) | payer OTHER ==
[~2019-03-20 20:42] MED LIST changes: +IBUP-136 PO; -IBUP200C71 PO; +ROBC PO; +[UNRECOGNIZED DRUG - CODE] PO; -[UNRECOGNIZED DRUG - CODE] PO
--- NOTE | 2019-03-20 20:44 | ER Report ---
History and Physical Time Seen By MD: 20:44 HPI/ROS CHIEF COMPLAINT: Heavy vaginal bleeding HISTORY OF PRESENT ILLNESS: 23-year-old female resents with heavy vaginal bleeding for 2 days. She notes severe menstrual cramps. Patient states her l ast menstrual period was 3 weeks ago. She is sexually active. She uses no form of control. Patient notes nausea but no vomiting. She does describe some symptoms of nausea for several weeks. She does not think she is . Patient denies dysuria or frequency. REVIEW OF SYSTEMS: Respiratory: No cough, no dyspnea. Cardiovascular: No chest pain, no palpitations. Gastrointestinal: As above Musculoskeletal: No back pain. Allergies: Coded Allergies: No Known Drug Allergies (Unverified , 03/23/18) Home Meds Active Scripts Hydrocodone Bit/Acetaminophen (HYDROCODON-ACETAMINOPHEN 5-325) 1 Each Tablet, 1 EACH PO Q4-6H PRN for PAIN, #8 TAB Prov:MEGHAN HENDRICKS DO 03/20/19 Guaifenesin/Codeine (GUAIFENESIN-CODEINE SYRUP) 5 Ml Syrp, 5 ML PO Q6H PRN for COUGH, #60 ML 0 Refills Prov:ERIK TONG MD 03/23/18 Reviewed Nurses Notes: Yes Old Medical Records Reviewed: Yes Hx Smoking: No Smoking Status: Never Smoker Hx Substance Use Disorder: No Hx Alcohol Use: Yes (FEW TIMES) Constitutional Vital Sign - Last 24 Hours 03/20/19 03/20/19 03/20/19 03/20/19 20:45 20:49 21:12 21:30 Temp 97.9 Pulse 94 87 Resp 12 B/P (MAP) 112/70 112/70 (84) 114/70 (85) Pulse Ox 96 99 O2 Delivery Room Air 03/20/19 03/20/19 03/20/19 21:42 21:47 22:17 Pulse 75 71 ??? Pulse Ox 95 94 Physical Exam General Appearance: The patient is alert, has no immediate need for airway protection and no current signs of toxicity. Vital signs stable, afebrile, pulse ox normal Eyes: Pupils equal and round no injection. Respiratory: Chest is non tender, lungs are clear to auscultation. Cardiac: regular rate and rhythm Gastrointestinal: Abdomen is soft. Mild suprapubic tenderness, no rebound or guarding no masses, bowel sounds normal. Musculoskeletal: Neck: Neck is supple and non tender. Extremities have full range of motion and are non tender. Skin: No rashes or lesions. DIFFERENTIAL DIAGNOSIS: After history and physical exam differential diagnosis was considered for vaginal bleeding including but not limited to ectopic , menses, miscarriage, and dysfunctional uterine bleeding. Medical Decision Making Data Points Result Diagram: 03/20/19210503/20/192105 Laboratory Hematology Test 03/20/19 21:06 Red Blood Count 5.50 M/uL (4.17-5.56) Mean Corpuscular Volume 84.6 fL (80.0-96.0) Mean Corpuscular Hemoglobin 28.9 pg (26.0-33.0) Mean Corpuscular Hemoglobin Concent 34.2 g/dL (32.0-36.0) Red Cell Distribution Width 14.2 % (11.5-14.5) Mean Platelet Volume 8.2 fL (7.2-11.1) Neutrophils (%) (Auto) 63.3 % (39.4-72.5) Lymphocytes (%) (Auto) 23.8 % (17.6-49.6) Monocytes (%) (Auto) 9.3 % (4.1-12.4) Eosinophils (%) (Auto) 2.6 % (0.4-6.7) Basophils (%) (Auto) 1.0 % (0.3-1.4) Nucleated RBC Relative Count (auto) 0.1 /100WBC Neutrophils # (Auto) 6.4 K/uL (2.0-7.4) Lymphocytes # (Auto) 2.4 K/uL (1.3-3.6) Monocytes # (Auto) 0.9 K/uL (0.3-1.0) Eosinophils # (Auto) 0.3 K/uL (0.0-0.5) Basophils # (Auto) 0.1 K/uL (0.0-0.1) Nucleated RBC Absolute Count (auto) 0.01 K/uL Prothrombin Time 12.5 seconds (12.0-14.4) Prothromb Time International Ratio 0.93 Activated Partial Thromboplast Time 31 seconds (23-35) Sodium Level 140 mmol/L (137-145) Potassium Level 4.2 mmol/L (3.5-5.0) Chloride Level 105 mmol/L (98-107) Carbon Dioxide Level 27 mmol/L (22-31) Blood Urea Nitrogen 15 mg/dl (7-18) Creatinine 0.80 mg/dl (0.52-1.04) Glomerular Filtration Rate Calc > 60.0 Random Glucose 87 mg/dl (75-110) Calcium Level 9.6 mg/dl (8.4-10.2) Total Bilirubin 0.2 mg/dl (0.2-1.3) Aspartate Amino Transf (AST/SGOT) 25 U/L (0-35) Alanine Aminotransferase (ALT/SGPT) 22 U/L (0-56) Alkaline Phosphatase 56 U/L (0-126) Total Protein 7.8 g/dl (6.3-8.2) Albumin 4.5 g/dl (3.5-5.0) Human Chorionic Gonadotropin, Qual Negative (NEGATIVE) Chemistry Test 03/20/19 21:06 White Blood Count 10.1 k/uL (4.5-11.0) Red Blood Count 5.50 M/uL (4.17-5.56) Hemoglobin 15.9 g/dL (12.0-16.0) Hematocrit 46.5 % (34.0-47.0) Mean Corpuscular Volume 84.6 fL (80.0-96.0) Mean Corpuscular Hemoglobin 28.9 pg (26.0-33.0) Mean Corpuscular Hemoglobin Concent 34.2 g/dL (32.0-36.0) Red Cell Distribution Width 14.2 % (11.5-14.5) Platelet Count 367 K/uL (150-450) Mean Platelet Volume 8.2 fL (7.2-11.1) Neutrophils (%) (Auto) 63.3 % (39.4-72.5) Lymphocytes (%) (Auto) 23.8 % (17.6-49.6) Monocytes (%) (Auto) 9.3 % (4.1-12.4) Eosinophils (%) (Auto) 2.6 % (0.4-6.7) Basophils (%) (Auto) 1.0 % (0.3-1.4) Nucleated RBC Relative Count (auto) 0.1 /100WBC Neutrophils # (Auto) 6.4 K/uL (2.0-7.4) Lymphocytes # (Auto) 2.4 K/uL (1.3-3.6) Monocytes # (Auto) 0.9 K/uL (0.3-1.0) Eosinophils # (Auto) 0.3 K/uL (0.0-0.5) Basophils # (Auto) 0.1 K/uL (0.0-0.1) Nucleated RBC Absolute Count (auto) 0.01 K/uL Prothrombin Time 12.5 seconds (12.0-14.4) Prothromb Time International Ratio 0.93 Activated Partial Thromboplast Time 31 seconds (23-35) Glomerular Filtration Rate Calc > 60.0 Calcium Level 9.6 mg/dl (8.4-10.2) Total Bilirubin 0.2 mg/dl (0.2-1.3) Aspartate Amino Transf (AST/SGOT) 25 U/L (0-35) Alanine Aminotransferase (ALT/SGPT) 22 U/L (0-56) Alkaline Phosphatase 56 U/L (0-126) Total Protein 7.8 g/dl (6.3-8.2) Albumin 4.5 g/dl (3.5-5.0) Human Chorionic Gonadotropin, Qual Negative (NEGATIVE) Coagulation Test 03/20/19 21:06 Prothrombin Time 12.5 seconds Prothromb Time International Ratio 0.93 Activated Partial Thromboplast Time 31 seconds ED Course/Re-evaluation Clinical Indication for ER IV: IV Access ED Course Patient was admitted to an examination room. H&P was done. The differential diagnoses was considered. Patient had a peripheral IV established. Diagnostic laboratory studies were sent off including a serum case. Patient suffering a miscarriage. Patient was treated with Zofran and fentanyl. She was also given Toradol and a repeat dose of fentanyl 25 g. After her studies returned unremarkable. Her test was negative for H&H was stable. She is hemodynamically stable. Patient be discharged home and advised to follow-up with [facility] if she has continued heavy menses. Patient was given a limited supply of Lortab No. 8 tablets. She was given a note to be out of class tomorrow. Decision to Disposition Date: March 20, 2019 Decision to Disposition Time: 21:45 Depart Departure Latest Vital Signs Vital Signs Date Time Temp Pulse Resp B/P (MAP) Pulse Ox O2 Delivery O2 Flow Rate FiO2 5/14/19 22:17 ??? 03/20/19 21:47 94 03/20/19 21:30 114/70 (85) 03/20/19 20:45 97.9 12 Room Air Impression: Primary Impression: Dysfunctional uterine bleeding Condition: Improved Disposition: HOME OR SELF-CARE Referrals: LIZ JOYA MD, KIM N MD New Scripts Hydrocodone Bit/Acetaminophen (HYDROCODON-ACETAMINOPHEN 5-325) 1 Each Tablet 1 EACH PO Q4-6H PRN for PAIN, #8 TAB Prov: MEGHAN HENDRICKS DO 03/20/19 Patient Instructions: Dysfunctional Uterine Bleeding (ED), Dysmenorrhea (ED) Additional Instructions: Take ibuprofen 200 mg 3-4 tablets 3 times a day with food Apply heating pad to your lower abdomen Follow-up with [facility] if this persists MEGHAN HENDRICKS DO March 20, 2019 20:44
[2019-03-20] MEDS ORDERED: fentaNYL CITR 100 MCG/2 ML AMP IVP ONE ×2 (21:00→21:45)
[2019-03-20] MEDS ORDERED: ONDANSETRON 4 MG/2 ML VIAL IVP ONE (21:00)
[2019-03-20 21:23] LABS: PLATELET COUNT, AUTOMATED 367 K/uL (150-450)
[2019-03-20 21:30] VITALS: BP 114/70
[2019-03-20 21:44] LABS: INR 0.93
[2019-03-20] MEDS ORDERED: KETOROLAC 30 MG/ML VIAL IVP ONE (21:45)
[2019-03-20] MEDS ORDERED: LOR5/325 PO (21:47)
[2019-03-20] MEDS ORDERED: ACET/HYDROC 5/325MG TH ER ONLY 2 TAB/BOTTLE PO ONE (21:50)
== END 2019-03-20 22:28 | disposition home or self-care (01) ==
LOC: ER 21:06
DX: N93.8 Other specified abnormal uterine and vaginal bleeding (principal)
CPT/HCPCS: 84703; 85025; 85610; 85730; 96374; 96375; 96376; 99284; J1885; J2405; J3010; 82040; 82247; 82310; 82374; 82435; 82565; 82947; 84075; 84132; 84155; 84295; 84450; 84460; 84520

== ENCOUNTER → 2019-05-11 | Outpatient (REF) | payer OTHER ==
[~2019-05-11] MED LIST changes: +CEFU500T10 PO; -OMEP-125 PO; +OMEP-126 PO; +OSE75 FT; -RANI-366 PO; +RANI-54 PO
[2019-05-11 12:01] LABS: PLATELET COUNT, AUTOMATED 308 K/uL (150-450)
== END ==
PROVIDERS: ATTEND Nurse Practitioner Family
DX: R50.9 Fever, unspecified (principal)
CPT/HCPCS: 82040; 82247; 82310; 82374; 82435; 82565; 82947; 84075; 84132; 84155; 84295; 84450; 84460; 84520; 85025

== ENCOUNTER 2019-05-12 00:45 | Emergency (ER) | payer OTHER ==
[~2019-05-12 00:45] MED LIST changes: -CEFU500T10 PO; -OSE75 FT
[2019-05-12] MEDS ORDERED: IBUPROFEN 800 MG TAB PO ONE (01:00)
[2019-05-12] MEDS ORDERED: NS(*) 0.9% 1000 ML BAG 1,000 ML IV ONE ×2 (01:00)
[2019-05-12] MEDS ORDERED: ONDANSETRON 4 MG/2 ML VIAL IVP ONE (01:00)
--- NOTE | 2019-05-12 01:43 | RADIOLOGY IMAGING REPORT ---
FACILITY: [facility] PATIENT NAME: Genevieve Blanco : 1995 MR: [id number] V: [id number] EXAM DATE: ORDERING PHYSICIAN: MEGHAN HENDRICKS TECHNOLOGIST: Location: [facility] Patient: Genevieve Blanco : 1995 Visit/Account:[id number] Date of Sevice: 05/12/2019 CHEST PA LAT COMPARISONS: 2 view chest dated March 23, 2018 ADDITIONAL PERTINENT HISTORY: Fever and cough FINDINGS: Cardiomediastinal silhouette: Negative. Pulmonary vasculature: Negative. Lung martell: Negative. Pleural spaces: Negative. Osseous structures: Negative. Surrounding soft tissues: Negative. IMPRESSION: No evidence of acute cardiopulmonary disease. Report Dictated By: Duane Rubio MD at 05/12/2019 1:35 AM Report E-Signed By: Duane Rubio MD at 05/12/2019 1:37 AM WSN:[id number]
[2019-05-12] MEDS ORDERED: PROM-110 PO (02:14)
[2019-05-12] MEDS ORDERED: LOR5/325 PO (02:14)
[2019-05-12] MEDS ORDERED: OSE75 FT (02:14)
--- NOTE | 2019-05-12 02:17 | ER Report ---
History and Physical Time Seen By MD: 00:50 Hx. of Stated Complaint: FEVER, HEADACHE, WAS AT URGENT CARE TODAY. GOT A ZPACK HPI/ROS CHIEF COMPLAINT: Fever, headache HISTORY OF PRESENT ILLNESS: 23-year-old female presents with fever and headache. She was seen earlier yesterday at urgent care and prescribed Zithromax benzoate Tylenol after she received an IV of fluids with normal laboratory studies. Patient spiked another fever tonight to 102.7. She has a severe headache. No photophobia or stiff neck. She notes no nausea or vomiting. She stating the T ylenol she is taking is not working. She reports a cough. Patient denies dysuria. REVIEW OF SYSTEMS: Respiratory: As above Cardiovascular: No chest pain, no palpitations. Gastrointestinal: No vomiting, no abdominal pain. Musculoskeletal: No back pain. Allergies: Coded Allergies: No Known Drug Allergies (Unverified , 05/12/19) Home Meds Active Scripts Cefuroxime Axetil (CEFUROXIME) 500 Mg Tablet, 500 MG PO BID for infection, #14 TAB Prov:MEGHAN HENDRICKS DO 05/12/19 Promethazine Hcl (PROMETHAZINE HCL) 25 Mg Tablet, 25 MG PO Q4H PRN for nausea or cough suppression, #14 TAB Prov:MEGHAN HENDRICKS DO 05/12/19 Hydrocodone Bit/Acetaminophen (HYDROCODON-ACETAMINOPHEN 5-325) 1 Each Tablet, 1 EACH PO Q4-6H PRN for pain or cough suppression, #12 TAKE ONE TABLET BY MOUTH EVERY 4-6 HOURS NEEDED FOR PAIN Prov:MEGHAN HENDRICKS DO 05/12/19 Oseltamivir Phosphate (TAMIFLU) 75 Mg Cap, 75 MG FT BID for influenza, #10 CAP Prov:MEGHAN HENDRICKS DO 05/12/19 Discontinued Scripts Hydrocodone Bit/Acetaminophen (HYDROCODON-ACETAMINOPHEN 5-325) 1 Each Tablet, 1 EACH PO Q4-6H PRN for PAIN, #8 TAB Prov:MEGHAN HENDRICKS DO 03/20/19 Guaifenesin/Codeine (GUAIFENESIN-CODEINE SYRUP) 5 Ml Syrp, 5 ML PO Q6H PRN for COUGH, #60 ML 0 Refills Prov:ERIK TONG MD 03/23/18 Hx Smoking: No Smoking Status: Never Smoker Hx Substance Use Disorder: No Hx Alcohol Use: Yes (FEW TIMES) Constitutional Vital Sign - Last 24 Hours 05/12/19 05/12/19 05/12/19 05/12/19 00:49 00:50 01:00 01:15 Temp 102.3 Pulse 134 129 121 Resp 14 B/P (MAP) 100/59 (73) 100/59 Pulse Ox 91 95 92 05/12/19 05/12/19 05/12/19 05/12/19 01:30 01:45 02:05 02:15 Pulse 118 114 ??? B/P (MAP) 109/45 (66) 114/54 (74) Pulse Ox 84 97 05/12/19 05/12/19 05/12/19 05/12/19 02:20 02:30 02:35 02:50 Pulse ? B/P (MAP) 98/44 (62) 05/12/19 05/12/19 05/12/19 05/12/19 03:00 03:05 03:20 03:35 Pulse ? B/P (MAP) 113/50 (71) 05/12/19 05/12/19 03:45 03:50 Temp 98.8 Pulse ??? Physical Exam Fever 102.3, tachycardic, pulse ox normal General Appearance: The patient is alert, has no immediate need for airway protection and no current signs of toxicity. Moderate distress HEENT: Pupils equal and round no injection. -Photophobia, TMs normal, oropharynx with moderate erythema Respiratory: Chest is non tender, lungs are clear to auscultation. No wheezing or rails Cardiac: regular rate and rhythm, no murmur Gastrointestinal: Abdomen is soft and non tender, no masses, bowel sounds normal. Musculoskeletal: Neck: Neck is supple and non tender. No meningismus Extremities have full range of motion and are non tender. Skin: No rashes or lesions. DIFFERENTIAL DIAGNOSIS: After history and physical exam differential diagnosis was considered for adult fever including but not limited to viral syndromes including influenza, urinary tract infection, pneumonia and sepsis. Medical Decision Making Data Points Laboratory Hematology Test 05/12/19 00:57 05/12/19 02:04 Influenza Virus Type A (PCR) Positive (NEGATIVE) Influenza Virus Type B (PCR) Negative (NEGATIVE) Urine Color Yellow Urine Clarity Cloudy Urine pH 6.0 pH (4.8-9.5) Urine Specific Lexa 1.017 Urine Protein Negative mg/dL (NEGATIVE) Urine Glucose (UA) Negative mg/dL (NEGATIVE) Urine Ketones Negative mg/dL (NEGATIVE) Urine Blood Moderate (NEGATIVE) Urine Nitrite Positive (NEGATIVE) Urine Bilirubin Negative (NEGATIVE) Urine Urobilinogen Negative mg/dL (0.2-1.9) Urine Leukocyte Esterase Large (NEGATIVE) Urine RBC 5 /HPF (0-2/HPF) Urine WBC 28 /HPF (0-5/HPF) Urine Squamous Epithelial Cells Many /LPF (</=FEW) Urine Transitional Epithelial Cells Many /LPF (NONE-FEW) Urine Bacteria Moderate /HPF (NONE-FEW) Urine Mucus Few /HPF (NONE-FEW) Chemistry Test 05/12/19 00:57 05/12/19 02:04 Influenza Virus Type A (PCR) Positive (NEGATIVE) Influenza Virus Type B (PCR) Negative (NEGATIVE) Urine Color Yellow Urine Clarity Cloudy Urine pH 6.0 pH (4.8-9.5) Urine Specific Lexa 1.017 Urine Protein Negative mg/dL (NEGATIVE) Urine Glucose (UA) Negative mg/dL (NEGATIVE) Urine Ketones Negative mg/dL (NEGATIVE) Urine Blood Moderate (NEGATIVE) Urine Nitrite Positive (NEGATIVE) Urine Bilirubin Negative (NEGATIVE) Urine Urobilinogen Negative mg/dL (0.2-1.9) Urine Leukocyte Esterase Large (NEGATIVE) Urine RBC 5 /HPF (0-2/HPF) Urine WBC 28 /HPF (0-5/HPF) Urine Squamous Epithelial Cells Many /LPF (</=FEW) Urine Transitional Epithelial Cells Many /LPF (NONE-FEW) Urine Bacteria Moderate /HPF (NONE-FEW) Urine Mucus Few /HPF (NONE-FEW) Urinalysis Test 05/12/19 02:04 Urine Color Yellow Urine Clarity Cloudy Urine pH 6.0 pH (4.8-9.5) Urine Specific Lexa 1.017 Urine Protein Negative mg/dL (NEGATIVE) Urine Glucose (UA) Negative mg/dL (NEGATIVE) Urine Ketones Negative mg/dL (NEGATIVE) Urine Blood Moderate (NEGATIVE) Urine Nitrite Positive (NEGATIVE) Urine Bilirubin Negative (NEGATIVE) Urine Urobilinogen Negative mg/dL (0.2-1.9) Urine Leukocyte Esterase Large (NEGATIVE) Urine RBC 5 /HPF (0-2/HPF) Urine WBC 28 /HPF (0-5/HPF) Urine Squamous Epithelial Cells Many /LPF (</=FEW) Urine Transitional Epithelial Cells Many /LPF (NONE-FEW) Urine Bacteria Moderate /HPF (NONE-FEW) Urine Mucus Few /HPF (NONE-FEW) Microbiology Microbiology Date/Time Source Procedure Growth Status 05/12/19 02:04 Clean Catch Midstream Ur Urine Culture - Preliminary Gram Negative Jesus Resulted EKG/Imaging Imaging X-ray: Two-view chest x-ray was obtained. I viewed the images myself on the PACS system. My interpretation of the images is: No infiltrate, no effusion, normal mediastinum. The radiologist interpretation had no clinically significant variation from this interpretation. ED Course/Re-evaluation Clinical Indication for ER IV: Hydration, IV Access ED Course Patient was admitted to an examination room. H&P was done. The differential diagnoses was considered. Patient with a fever and a headache. No photophobia or stiff neck. Diagnostic evaluations were sent off. Rapid influenza came back positive for flu a. Urinalysis was positive for urinary tract infection. Patient was advised to discontinue her Zithromax. She was placed on Ceftin for treatment of a UTI and Tamiflu for influenza. Patient was given hydrocodone and Phenergan for symptomatically relief. She is advised to continue ibuprofen 600 mg 3 times daily. She is advised to increase fluid intake. Decision to Disposition Date: May 12, 2019 Decision to Disposition Time: 02:08 Depart Departure Latest Vital Signs Vital Signs Date Time Temp Pulse Resp B/P (MAP) Pulse Ox O2 Delivery O2 Flow Rate FiO2 05/12/19 03:50 ??? 05/12/19 03:45 98.8 05/12/19 03:00 113/50 (71) 05/12/19 01:45 97 05/12/19 00:50 14 Impression: Primary Impression: Influenza A Additional Impressions: Fever Headache Urinary tract infection Condition: Improved Disposition: HOME OR SELF-CARE New Scripts Cefuroxime Axetil (CEFUROXIME) 500 Mg Tablet 500 MG PO BID for infection, #14 TAB Prov: MEGHAN HENDRICKS DO 05/12/19 Promethazine Hcl (PROMETHAZINE HCL) 25 Mg Tablet 25 MG PO Q4H PRN for nausea or cough suppression, #14 TAB Prov: MEGHAN HENDRICKS DO 05/12/19 Hydrocodone Bit/Acetaminophen (HYDROCODON-ACETAMINOPHEN 5-325) 1 Each Tablet 1 EACH PO Q4-6H PRN for pain or cough suppression, #12 TAKE ONE TABLET BY MOUTH EVERY 4-6 HOURS NEEDED FOR PAIN Prov: MEGHAN HENDRICKS DO 05/12/19 Oseltamivir Phosphate (TAMIFLU) 75 Mg Cap 75 MG FT BID for influenza, #10 CAP Prov: MEGHAN HENDRICKS DO 05/12/19 Patient Instructions: Influenza (ED) Additional Instructions: Take ibuprofen 200 mg 3-4 tablets 3 times a day with food Drink a lot of fluids Take Phenergan and hydrocodone tablets every 4 hours as needed for pain or cough suppression Take Tamiflu twice daily until gone Follow-up with primary care if unimproved in 3-5 days Problem Qualifiers Additional Impressions: Fever Fever type: unspecified Qualified Codes: R50.9 - Fever, unspecified Headache Headache type: unspecified Headache chronicity pattern: acute headache Intractability: intractable Qualified Codes: R51 - Headache Urinary tract infection Urinary tract infection type: acute cystitis Hematuria presence: without hematuria Qualified Codes: N30.00 - Acute cystitis without hematuria MEGHAN HENDRICKS DO May 12, 2019 02:17
[2019-05-12] MEDS ORDERED: OSELTAMIVIR PHOS 75 MG CAP PO ONE (02:25)
[2019-05-12] MEDS ORDERED: ACET/HYDROC 5/325MG TH ER ONLY 2 TAB/BOTTLE PO ONE (02:25)
[2019-05-12] MEDS ORDERED: PROMETHAZINE HCL 25 MG TAB TH 2 TAB/BOTTLE PO ONE (02:25)
[2019-05-12] MEDS ORDERED: CEFUROXIME AXETIL 250 MG TAB PO ONE (02:45)
[2019-05-12] MEDS ORDERED: CEFU500T10 PO (02:47)
[2019-05-12] MEDS ORDERED: fentaNYL CITR 100 MCG/2 ML AMP IVP ONE (02:50)
[2019-05-12 03:00] VITALS: BP 113/50
== END 2019-05-12 03:42 | disposition home or self-care (01) ==
LOC: ER 01:11
DX: J09.X2 Influenza due to identified novel influenza A virus with other respiratory manifestations (principal); N30.00 Acute cystitis without hematuria; Z79.899 Other long term (current) drug therapy
CPT/HCPCS: 71046; 81001; 87077; 87088; 87186; 87502; 96361; 96374; 96375; 99284; J2405; J3010; J7030